=== PATIENT | female | born 1980 ===

== ENCOUNTER 2024-03-28 06:41 | Emergency (ER) | payer SELFPAY ==
--- NOTE | ~2024-03-28 | XR_ITS ---
Lumbosacral Spine: AP and lateral views Clinical History: Pain Findings: The normal lordotic curve is maintained. The vertebral bodies and posterior elements are i ntact. The intervertebral disc spaces are preserved. There is moderate facet arthropathy, especially the lower lumbar spine. The sacroiliac joints are normally outlined. Impression: Moderate facet arthropathy, as above. Reviewed, dictated and finalized at location . Impression: Moderate facet arthropathy, as above.
--- NOTE | ~2024-03-28 | XR_ITS ---
AP view of the pelvis and AP and lateral views of the bilateral hips Clinical history: Pain Findings: No acute fracture or dislocation is seen. Osseous alignment is anatomic. Bilateral hip and SI joint spaces are preserved. Soft tissues are unremarkable. Impression: No significant abnormality is seen. Reviewed, dictated and finalized at location . Impression: No significant abnormality is seen.
[2024-03-28 06:45] VITALS: BP 163/113; PULSE 89; RESP 20; TEMP 36.7; O2SAT 100
[2024-03-28] MEDS: KETOROLAC 30 MG/ML VIAL (*BKC) IM (07:54)
[2024-03-28] MEDS: dexAMETHasone SOD PHOS INJ 10 MG/ML 1 ML VIAL IM (07:54)
[2024-03-28] MEDS: ORPHENADRINE CITRATE 100 MG TABLET.ER PO (07:55)
[2024-03-28] MEDS: HYDROcodone/acetaminophen (*CRX) 5-325 MG TABLET 1 TAB PO (07:55)
--- NOTE | 2024-03-28 08:59 | ED.GENADULT ---
HPI - General Adult General Chief complaint: Back Pain/Injury Stated complaint: back pain and left hip pain Time Seen by Provider: 03/28/24 07:09 History of Present Illness HPI narrative: Patient is a 43-year-old female who presents emergency department with chief complaint of low back pain and pain radiating down both of her legs. The patient reports no numbness no tingling reports no bowel or bladder incontinence denies footdrop. Related Data Allergies Allergy/AdvReac Type Severity Reaction Status Date / Time No Known Allergies Allergy Mild Verified 03/28/24 06:48 Review of Systems Review of Systems: A 10 system review of systems was completed on the patient and is negative except for what is stated in the HPI. Nursing and ancillary documentation was reviewed. Exam Narrative: GENERAL: Well-appearing, well-nourished, and in no acute distress. HEAD: Normocephalic, atraumatic. EYES: PERRLA and EOMI. ENT: Nares clear, no rhinorrhea or epistaxis. Mucous membranes moist. NECK: Supple. CHEST: Clear to auscultation. No respiratory distress. HEART: Regular rate and rhythm. No murmur heard. Normal peripheral pulses. ABDOMEN: Soft, nontender, nondistended, normal active bowel sounds. EXTREMITIES: Normal range of motion. No edema. Tenderness to palpation of bilateral SI joints SKIN: Warm, dry, no rash. NEURO: No focal deficits. Alert and oriented x3. No saddle anesthesia no footdrop PSYCH: Normal mood and affect. Course Vital Signs Vital signs: Vital Signs Temperature 36.7 C 03/28/24 06:45 Pulse Rate 89 03/28/24 06:45 Respiratory Rate 20 03/28/24 06:45 Blood Pressure 163/113 H 03/28/24 06:45 Pulse Oximetry 100 03/28/24 06:45 Oxygen Delivery Room Air 03/28/24 06:45 Temperature 36.7 C 03/28/24 06:45 Pulse Rate 89 03/28/24 06:45 Respiratory Rate 20 03/28/24 06:45 Blood Pressure 163/113 H 03/28/24 06:45 Pulse Oximetry 100 03/28/24 06:45 Oxygen Delivery Room Air 03/28/24 06:45 Medical Decision Making [facility] Narrative Medical decision making narrative: Differential diagnosis includes low back pain, sciatica, muscle spasm, Differential did include cauda equina the patient has no signs of neurological dysfunction. No saddle anesthesia no bowel or bladder incontinence and no footdrop. Plain film x-rays lumbar spine showed Moderate facet arthropathy, as above. Hip x-ray showed no acute finding Vital Signs Vital Signs: Vital Signs Temperature 36.7 C 03/28/24 06:45 Pulse Rate 89 03/28/24 06:45 Respiratory Rate 20 03/28/24 06:45 Blood Pressure 163/113 H 03/28/24 06:45 Pulse Oximetry 100 03/28/24 06:45 Oxygen Delivery Room Air 03/28/24 06:45 Temperature 36.7 C 03/28/24 06:45 Pulse Rate 89 03/28/24 06:45 Respiratory Rate 20 03/28/24 06:45 Blood Pressure 163/113 H 03/28/24 06:45 Pulse Oximetry 100 03/28/24 06:45 Oxygen Delivery Room Air 03/28/24 06:45 Discharge Plan Discharge Clinical Impression: Sciatica, Low back pain Patient Disposition: Home, Self-Care Condition: Stable Instructions: Antibiotic Form, Sciatica (ED), Acute Low Back Pain (ED) Prescriptions: New cyclobenzaprine 10 mg tablet 10 mg PO TID PRN (Reason: muscle spasm) Qty: 21 0RF diclofenac potassium 50 mg tablet 50 mg PO TID PRN (Reason: pain) Qty: 21 0RF prednisone 20 mg tablet 40 mg PO DAILY 5 Days Qty: 10 0RF lidocaine [Lidoderm] 5 % adhesive patch,medicated 1 patch topical DAILY Qty: 15 0RF Rx Instructions: leave on most painful area for up to 12 hrs Follow-up/Referrals: Lauri Martin MD [Physician] - UNKNOWN,DOCTOR [Primary Care Provider] - Time of Disposition: 09:03
[2024-03-28 09:12] VITALS: BP 155/98; PULSE 64; RESP 20; TEMP 36.6; O2SAT 97
== END 2024-03-28 09:13 | disposition home or self-care (01) ==
PROVIDERS: Emergency Provider Emergency Medicine
DX: M54.42 Lumbago with sciatica, left side (principal); M54.41 Lumbago with sciatica, right side
CPT/HCPCS: 72100; 73521; 96372; 99284; A9270; J1100; J1885